=== PATIENT | female | born 1955 | race Caucasian/White ===

== ENCOUNTER 2023-07-12 10:06 | Emergency (ER) | payer BC, SELFPAY ==
[2023-07-12 10:10] VITALS: BP 133/60
[2023-07-12 11:09] VITALS: BMI 34.7
--- NOTE | 2023-07-12 11:12 | ED.GENMED ---
History of Present Illness
General
Chief Complaint: Cold/Flu/URI Symptoms
Source: patient
Exam Limitations: none
Time Seen by Provider: 07/12/23 11:11
Nursing documentation reviewed up to this point in time: agreed with
Travel History
Have you had any contact with someone who has COVID-19?: No
Do you have any symptoms of coronavirus? Fever > 100 degrees, chills, cough, shortness of breath, sore throat, loss of taste or smell, muscle aches, or headache?: Yes
Symptoms:: cough
History of Present Illness
History of Present Illness:
68-year-old female with history of HTN, HLD, hypothyroid presents stating 2 days ago she got overall chills, fatigue, sinus stuffiness, yesterday had a runny nose all day but felt a little better generally, last night she developed a horrible cough,
body aches and had trouble sleeping this morning she is 'sick and overall I feel bad.' Mild burning in throat.
Past History
Past History
ED Past Medical History: HTN, Hypercholesterolemia, Renal failure, Hypothyroidism and Other
ED Past Surgical History: Appendectomy and Gynecological
Social History
Tobacco: Non-smoker
Alcohol: Occasional
Personal:
Living: with family
Employment: Employed
Review of Systems
Review of Systems
Allergies reviewed?: Yes
All Other Systems: ROS reviewed and negative except as documented in HPI and ROS
Constitutional: Reports fatigue and chills; Denies fever
EENT: Reports sore throat
Respiratory: Reports cough; Denies trouble breathing
Cardiac: Denies chest pain
ABD/GI: Denies abdominal pain, nausea, vomiting or diarrhea
: Denies dysuria or difficulty voiding
Musculoskeletal: Reports other (general body aches); Denies edema
Skin: Reports no symptoms
Neurological: Denies dizzy, headache, weakness or numbness
Phy Exam
Physical Exam
Physical Exam:
GENERAL: No acute distress. A&Ox3.
CONSTITUTIONAL: Afebrile.
EYES: Clear, conjunctivae normal
Neck: Supple
ENMT: moist mucus membranes, Pharynx nl
RESPIRATORY: Regular respirations, nonlabored, lungs clear. Frequent coarse cough.
CARDIOVASCULAR: Regular rate and rhythm, no murmurs, no rubs.
GI: Soft, nontender
MUSCULOSKELETAL: Moves with ease. Well perfused.
SKIN: Warm, dry, pink
PSYCH: Normal mood and affect. Well kept, interactive and appropriate
NEUROLOGIC: Awake, alert and oriented. No focal neurological deficits
Course
Orders/Labs/Results
Orders:
Orders
07/12/23 10:57
Chest [CR Chest - 2 Views ] Urgent
Comment:
Reason For Exam: cough/uri
07/12/23 11:06
COVID-19 Antigen Urgent
Source: Nasal Swab
INF RAPID [Influenza A+B Rapid Molecular] Urgent
FRIDA Source: Nasal Swab
Specimen Description:
Abnormal Lab Results
07/12/23
11:06
SARS-CoV-2 Antigen Positive A
(Negative)
Vital Signs
Initial and Last Documented VS:
Initial Vital Signs
Temp Pulse Resp BP Pulse Ox
98.3 F 82 18 133/60 96
07/12/23 10:10 07/12/23 10:10 07/12/23 10:10 07/12/23 10:10 07/12/23 10:10
Last Documented Vital Signs
Temp Pulse Resp BP Pulse Ox
98.3 F 82 18 133/60 96
07/12/23 10:10 07/12/23 10:10 07/12/23 10:10 07/12/23 10:10 07/12/23 10:10
MDM/Problems Addressed
Differential Diagnosis Includes:
COVID, influenza, pneumonia
MDM/Problems Addressed:
68-year-old female with history of HTN, HLD, hypothyroid presents stating 2 days ago she got overall chills, fatigue, sinus stuffiness, yesterday had a runny nose all day but felt a little better generally, last night she developed a horrible cough,
body aches and had trouble sleeping this morning she is 'sick and overall I feel bad.' Mild burning in throat.
Afebrile, NAD
No hypoxemia
07/12/2023 1133 AM
COVID test is positive
Influenza test is negative
Chest x-ray NAD
*Critical Care Note
Total Time (30-74mins, 75-104mins- exclusive of procedures): Not Applicable
ED Attending Note
-
Portions of this chart may have been created with voice recognition software.� Occasional wrong word or��sound alike� substitutions may have occurred due to the inherent limitations of voice recognition software.
Discharge Plan
Departure
Patient Disposition: Home (Routine Discharge)
Date of Disposition: 07/12/23
Time of Disposition: 12:03
Patient with high blood pressure during this ER visit?: No
Condition: Good
Covid-19: Confirmed COVID-19
Discharge Problem:
COVID-19
Instructions: Coronavirus Home Quarantine
Prescriptions:
No Action
amlodipine 5 MG tablet
5 mg PO DAILY
levothyroxine 150 MCG tablet
150 mcg PO DAILY
rosuvastatin 10 MG tablet
10 mg PO DAILY
naproxen sodium [Aleve] 220 MG tablet
440 mg PO DAILY
Referrals:
Ana Luisa Greene MD [Family Provider] - As needed
Activity Restrictions/Additional Instructions:
As we discussed, your COVID test is positive.
You may try [id number] cough medications, mentholated cough drops may help
Interventions
Interventions:
*Risk Screen - Suicide Last Done: 07/12/23 11:09
*General Assessment Last Done: 07/12/23 11:09
*Neglect/Abuse Screening Last Done: 07/12/23 11:09
ED- Fall Risk Assessment Last Done: 07/12/23 11:09
*ED COVID-19 Vaccine History Last Done: 07/12/23 10:13
*Nursing Disposition Last Done: 07/12/23 12:13
ED- Pulmonary Assessment Last Done: 07/12/23 11:09
Discharge Date and Time
Discharge Date/Time: 07/12/23 12:18
[2023-07-12 11:19] LABS: COVID-19 Antigen Positive (Negative)
== END 2023-07-12 12:18 | disposition home or self-care (01) ==
LOC: EMR 10:06
PROVIDERS: EMERGENCY PHYSICIAN Emergency Medicine; FAMILY PHYSICIAN Family Medicine
DX: U07.1 COVID-19 (principal); I10 Essential (primary) hypertension; E78.5 Hyperlipidemia, unspecified; E03.9 Hypothyroidism, unspecified
CPT/HCPCS: 99283; 71046; 87502; 87811

== ENCOUNTER → 2023-07-17 06:46 | Outpatient (REF) | payer BC, SELFPAY ==
[2023-07-17 07:26] LABS: % Basophils 0.3 % (0-2); % Eosinophils 2.5 % (0-6); % Immature Granulocytes 0.5 % (0-0.5); % Lymphocytes 31.3 % (20.5-51.1); % Monocytes 5.1 % (1.7-9.3); % Neutrophils 60.3 % (42.2-75.2); Absolute Eosinophils 0.2 10^3/uL (0-0.7); Absolute Lymphocytes 2.8 10^3/uL (1.2-3.4); Absolute Monocytes 0.5 10^3/uL (0.1-0.6); Absolute Neutrophils 5.4 10^3/uL (1.4-6.5); Hematocrit 41.4 % (37.0-47.0); Mean Corp Hgb Conc. 33.8 g/dL (33.0-37.0); Mean Corpuscular Hgb 29.7 pg (27.0-31.0); Mean Corpuscular Volume 87.9 fL (81.0-99.0); Mean Platelet Volume 9.1 fL (7.4-10.4); Nucleated Red Blood Cells % 0 %; Platelet Count 306 10^3/uL (130-400); Red Blood Cell Count 4.71 10^6/uL (4.20-5.40); Red Cell Dist. Width 12.4 % (11.5-14.5); White Blood Cell Count 8.9 10^3/uL (4.8-10.8)
[2023-07-17 07:51] LABS: ALT (SGPT) 29 U/L (0-35); AST (SGOT) 28 U/L (14-36); Albumin 4.2 g/dl (3.5-5.0); Alkaline Phosphatase 97 U/L (38-126); Blood Urea Nitrogen 12 mg/dl (7-17); Calcium 9.1 mg/dl (8.4-10.2); Carbon Dioxide 30 mmol/L (22-30); Chloride 107 mmol/L (98-107); Glucose 116 mg/dl (70-99); HDL Cholesterol 40 mg/dl; LDL Cholesterol, Calculated 65 mg/dl; Potassium 3.8 mmol/L (3.5-5.1); Sodium 141 mmol/L (135-145); Total Bilirubin 0.6 mg/dl (0.2-1.3); Total Cholesterol 159 mg/dl (50-199); Total Protein 6.8 g/dl (6.3-8.2); Triglyceride 274 mg/dl (10-149); Very Low Density Lipoprotein 54 mg/dl (0-30); eGFR > 60.00
[2023-07-17 08:26] LABS: TSH Reflex To Free T4 6.57 uIU/ml (0.47-4.68)
[2023-07-17 08:55] LABS: Free T4 1.25 ng/dl (0.78-2.19)
[2023-07-17 11:15] LABS: Glycohemoglobin (HgbA1c) 6.2 % (4.0-5.6)
== END ==
LOC: REG 06:46
PROVIDERS: ATTENDING PHYSICIAN Family Medicine
DX: E03.8 Other specified hypothyroidism (principal); R73.01 Impaired fasting glucose; I10 Essential (primary) hypertension; E78.2 Mixed hyperlipidemia
CPT/HCPCS: 36415; 80053; 80061; 83036; 84439; 84443; 85025

== ENCOUNTER → 2023-09-04 15:37 | Outpatient (REF) | payer BC, SELFPAY ==
[2023-09-04 17:08] LABS: HDL Cholesterol 47 mg/dl; LDL Cholesterol, Calculated 71 mg/dl; Total Cholesterol 153 mg/dl (50-199); Triglyceride 179 mg/dl (10-149); Very Low Density Lipoprotein 35 mg/dl (0-30)
[2023-09-04 17:26] LABS: Free T4 2.06 ng/dl (0.78-2.19)
[2023-09-04 17:40] LABS: TSH 0.06 uIU/ml (0.47-4.68)
== END ==
LOC: REG 15:37
PROVIDERS: ATTENDING PHYSICIAN Family Medicine
DX: E78.2 Mixed hyperlipidemia (principal); E03.8 Other specified hypothyroidism
CPT/HCPCS: 36415; 80061; 84439; 84443

== ENCOUNTER → 2023-09-19 13:58 | Outpatient (REF) | payer BC, SELFPAY | LOC: WDC 13:58 | PROVIDERS: ATTENDING PHYSICIAN Family Medicine | DX: Z12.31 Encounter for screening mammogram for malignant neoplasm of breast (principal) | CPT/HCPCS: 77063; 77067 ==

== ENCOUNTER → 2024-09-23 15:05 | Outpatient (REF) | payer BC, SELFPAY | LOC: WDC 15:05 | PROVIDERS: ATTENDING PHYSICIAN Obstetrics & Gynecology Gynecology; FAMILY PHYSICIAN Family Medicine | DX: Z12.31 Encounter for screening mammogram for malignant neoplasm of breast (principal) | CPT/HCPCS: 77063; 77067 ==

== ENCOUNTER → 2024-12-11 11:54 | Outpatient (REF) | payer BC, SELFPAY | LOC: PAVMRI 11:54 | PROVIDERS: ATTENDING PHYSICIAN Student in an Organized Health Care Education/Training Program; FAMILY PHYSICIAN Family Medicine | DX: M76.821 Posterior tibial tendinitis, right leg (principal); M25.571 Pain in right ankle and joints of right foot | CPT/HCPCS: 73721 ==

== ENCOUNTER → 2025-02-22 06:21 | Outpatient (REF) | payer BC, SELFPAY ==
[2025-02-22 07:37] LABS: Hematocrit 46.5 % (37.0-47.0); Hemoglobin 15.0 g/dL (12.0-16.0); Mean Corp Hgb Conc. 32.3 g/dL (33.0-37.0); Mean Corpuscular Volume 88.9 fL (81.0-99.0); Nucleated Red Blood Cells % 0 %; Platelet Count 295 10^3/uL (130-400); Red Cell Dist. Width 12.7 % (11.5-14.5)
[2025-02-22 08:00] LABS: ALT (SGPT) 27 U/L (0-35); AST (SGOT) 23 U/L (14-36); Albumin 4.3 g/dl (3.5-5.0); Alkaline Phosphatase 104 U/L (38-126); Blood Urea Nitrogen 9 mg/dl (7-17); Calcium 9.4 mg/dl (8.4-10.2); Carbon Dioxide 30 mmol/L (22-30); Chloride 106 mmol/L (98-107); Glucose 130 mg/dl (70-99); HDL Cholesterol 43 mg/dl; LDL Cholesterol, Calculated 83 mg/dl; Potassium 4.5 mmol/L (3.5-5.1); Sodium 141 mmol/L (135-145); Total Protein 6.9 g/dl (6.3-8.2); Very Low Density Lipoprotein 35 mg/dl (0-30); eGFR > 60.00
[2025-02-22 08:52] LABS: Glycohemoglobin (HgbA1c) 6.0 % (4.0-5.6)
== END ==
LOC: REG 06:21
PROVIDERS: ATTENDING PHYSICIAN Family Medicine
DX: I10 Essential (primary) hypertension (principal); E78.2 Mixed hyperlipidemia; E03.8 Other specified hypothyroidism; R73.03 Prediabetes
CPT/HCPCS: 36415; 80053; 80061; 83036; 84439; 84443; 85025

== ENCOUNTER 2025-03-13 06:10 | Day surgery (SDC) | payer BC, SELFPAY ==
[2025-03-06 11:14] VITALS: BMI 38.6
[2025-03-13] VITALS (18 sets, daily range): BP systolic 102–152; BP diastolic 53–85; BMI 38.6
[2025-03-13] MEDS: TYLENOL 1000 MG PO (11:48)
[2025-03-13] MEDS: CELEBREX 200 MG PO (11:48)
[2025-03-13] MEDS: NORMOSOL-R/PLASMALYTE-A 1000 IV (11:55)
[2025-03-13] MEDS: ZOFRAN 4 MG IV (16:55)
--- NOTE | 2025-03-13 18:22 | CM ---
Received a phone call from Marta in [facility], PT was not able to see pt after surgery and DR Reza is requesting VN referral. I met with pt and her sister Rachel in PACU. Pt agreeable to referral to [facility]. Referral placed in [facility]. Rachel lives close
by and will provide support. Her number is [phone].
No other CM needs at this time.
--- NOTE | 2025-03-13 20:00 | W.PN.UPDATE ---
Update Note
Progress Note Update
70F s/p R medial double arthrodesis, gastroc recession, PT tenotomy
- strict NWB RLE
- continue surgical ppx abx 24hrs, not a barrier to discharge
- dressings c/d/i
- elevate RLE 2-3 pillows
- will reassess on am rounds
--- NOTE | 2025-03-13 20:03 | HPS.HSE ---
Family Physician
-
Family Physician: Ana Luisa Greeen MD
Chief Complaint
-
Postop
History of Present Illness
This is a 70-year-old female with past medical history significant for hypertension, hypothyroid, hyperlipidemia will presents in PACU following surgery.
She is postop day #0 status post double arthrodesis with posterior tibial tendon augmentation and gastroc lengthening in the R lower extremity. She had a delayed procedure. Plan was for discharge to home after procedure presents to the procedure
mostly patient is still recovering from anesthesia she was to be observed in the hospital overnight.
She is currently afebrile, hemodynamically stable with a blood pressure of 100/55 and a pulse of 66 and satting 98% on 2 L.
Medical History
Past Medical History
Past Medical History: Reports Other (hypertension, hypothyroid, hyperlipidemia, nephrolithiasis)
Past Surgical History: Reports Other (Hysterectomy with bilateral salpingo-oophorectomy, appendectomy, tonsillectomy, ureteroscopy and Right TKA)
Social History
Tobacco: Non-smoker
Alcohol: None
Drug: None
Personal:
Living: With Family
Family History
Family History: Not pertinent
Allergies / Home Medications
Allergies reflects when Allergies were last updated in [facility].
Home Medications with original date entered in [facility]
Allergy/Medication List:
Allergies
Allergy/AdvReac Type Severity Reaction Status Date / Time
No Known Allergies Allergy Verified 03/13/25 11:34
Home Medications
amlodipine 5 mg tablet 5 mg PO DAILY 11/05/19
levothyroxine 150 mcg tablet 150 mcg PO DAILY 11/05/19
rosuvastatin 10 mg tablet 10 mg PO DAILY 11/05/19
Review of Systems
-
Constitutional: Reports No Symptoms
EENT: Reports No Symptoms
Respiratory: Reports No Symptoms
Cardiac: Reports No Symptoms
Abdomen/GI: Reports No Symptoms
: Reports No Symptoms
Musculoskeletal: Reports No Symptoms
Skin: Reports No Symptoms
Neurological: Reports No Symptoms
Endocrine: Reports No Symptoms
Hematologic/Lymphatic: Reports No Symptoms
Psych: Reports No Symptoms
Physical Exam
Vital Signs
Vital Signs
Temp Pulse Resp BP Pulse Ox
97.9 F 66 16 104/55 94
03/13/25 18:00 03/13/25 19:30 03/13/25 19:30 03/13/25 19:00 03/13/25 19:30
Physical Exam
General: Well Developed, Well Nourished and No Apparent Distress
HEENT: NormoCephalic, Moist mucous membranes and Atraumatic
Respiratory: Clear
Cardiac: S1/S2 and Regular Rhythm; No Murmur or Rub
GI: Soft, Non Tender, Non Distended and Normal Bowel Sounds; No Organomegaly
Rectal: Deferred by Provider
Musculoskeletal: No Clubbing, No Cyanosis and Other (R lower extremity in cast)
Skin: No Rash
Neuro: Nonfocal/grossly intact
Psych: Calm
Data Reviewed
-
Diagnostic Radiology: Report Reviewed by me
Old Records: Reviewed
Impression/Plan
-
IMPRESSION:
70-year-old with past medical history of hypothyroid, hypertension hyperlipidemia who is postop day #0 status post double arthrodesis with posterior tibial tendon augmentation. Delayed procedure. Still recovering from anesthesia but currently
alert and oriented and easily arousable. Hemodynamically stable
PLAN:
Status post total double arthrodesis with tibial tendon augmentation
-Admit to MedSurg observation overnight
-Regular diet as tolerated
-Wean oxygen
-Pain control with as needed Tylenol, Celebrex and 5 mg of oxycodone
-Antiemetics as needed
-No indication for additional IV fluids at this time
-Continue Ancef while hospitalized.
-DVT prophylaxis with SCDs for now
-PT consulted, plan is for outpatient PT
CODE STATUS�full code
--- NOTE | 2025-03-13 21:00 | PTCARENOTE ---
PT 70-year-old female post R Foot Recon/Athro Posterior Tendon Repair, arrived from PACU to at 20:40. PMH HTN, hypothyroid, HLD status post double arthrodesis with posterior tibial tendon augmentation and gastroc lengthening in the R lower
extremity. Pt AOx3, non-weight bearing to RLE, RLE elevated on 3 pillows, pt denies pain at this time, bed in low position, call light in reach.
[ End ]
[2025-03-13] MEDS: NEURONTIN 300 MG PO (22:35)
[2025-03-13] MEDS: ANCEF 10 IV (22:35)
[2025-03-14 04:10] VITALS: BP 127/69
[2025-03-14] MEDS: ANCEF 10 IV (05:35)
[2025-03-14] MEDS: SYNTHROID 150 MCG PO (05:35)
[2025-03-14 07:35] VITALS: BP 128/68
[2025-03-14] MEDS: CRESTOR 10 MG PO (08:02)
[2025-03-14] MEDS: NEURONTIN 300 MG PO (08:02)
[2025-03-14] MEDS: NORVASC 5 MG PO (08:02)
--- NOTE | 2025-03-14 08:54 | CM ---
Cm reviewed medical records. Patient had been referred to [facility]. CM updated [facility] Admission RN.
PLAN: home with VN.
[2025-03-14 09:40] VITALS: BP 126/58; PULSE 76; O2SAT 98
--- NOTE | 2025-03-14 09:40 | W.PN.HOSP.TC ---
Today's Communication/Plan
-
Discharge
Assessment / Plan
Assessment / Plan
Gen-AAOx3, NAD
HEENT-NC, AT, anicteric, clear oral mm
Neck-supple
CV-reg, no M, +S1/S2
Lungs-clear B/L
Abd-soft, NT, ND
Ext-no edema
Musculoskeletal-no cyanosis, clubbing, right ankle Arnaud dressing intact
Skin-warm and dry
Neuro-grossly non-focal
Psych-calm, cooperative
Right foot pes valgus, posterior tibial tendon dysfunction, gastrocnemius equinus -underwent right foot medial double arthrodesis with posterior tibial tendon augmentation, tenolysis and gastroc recession, 03/13.
Stable postoperatively.
Brief postoperative hypoxia requiring observation overnight. Resolved.
Continue analgesics. Nonweightbearing right lower extremity per podiatry.
Outpatient podiatry follow-up.
Essential hypertension -continue amlodipine.
Impaired fasting glucose -recent hemoglobin A1c 6%, 02/22. Recommend weight loss. Outpatient follow-up with PCP.
Hyperlipidemia -rosuvastatin.
Hypothyroidism -continue levothyroxine. Recent TSH 0.02, free T4 1.7. Recommend follow-up with PCP.
Obesity due to excess calories
Full code
Dispo -stable for discharge today with outpatient follow-up.
32 minutes spent in discharge process.
Anticipated Discharge: Today
Subjective/Interval History
-
Date of Service: March 14, 2025
Patient seen and examined. Complaining of pressure around the ankle.
Objective Data
-
Vital Signs:
Vital Signs
Temp Pulse Resp BP Pulse Ox
98.1 F 68 16 138/61 93
03/14/25 07:35 03/14/25 07:35 03/14/25 07:35 03/14/25 08:02 03/14/25 07:35
I&O
03/13/25 03/14/25 03/15/25
06:59 06:59 06:59
Intake Total 400 / 400
Output Total 500 / 500
Balance -100 / -100
Review of Systems
-
History Source: Patient
All other systems: Reviewed and negative
--- NOTE | 2025-03-14 09:49 | VNURNOTE ---
Addendum entered by Ana Luisa Cleveland RN 03/14/25 10:09:
Correction:
start of care will be within a few days after discharge from . Sister was contacted and is aware.
Original Note:
Home Health Liaison met with patient at bedside to discuss [facility] nurse/therapy, visits, schedule and homebound status. Patient is agreeable and understands that visits at home will be 2-3 x per week to assess and teach medical management. Patient
requested rolling walker. PT aware. She confirms that she has a knee scooter at home. She denies need for commode or wc. She verbalizes understanding of strict NWB RLE. Patient is aware that [facility] will contact them for start of care in 1-2
days after discharge from . Provided contact number for [facility].
PM [facility] referral accepted in [facility].
--- NOTE | 2025-03-14 09:54 | W.DS.TRANS ---
DC Summary - Industrial Electrical Engineer
-
Discharge Instructions:
Sleep Apnea Risk Intermediate
Discharge Diagnosis/Procedures Right foot medial double arthrodesis
Diet Regular
Activity With assistance
Additional Activity Nonweightbearing right lower extremity
Driving Restrictions No driving
Bathing Restrictions None
Instructions:
Stand-Alone Forms:
Changes to Home Medications: No
Discharge Medications:
DC Medications w/original date entered in [facility]
amlodipine 5 mg tablet 5 mg PO DAILY 11/05/19
levothyroxine 150 mcg tablet 150 mcg PO DAILY 11/05/19
rosuvastatin 10 mg tablet 10 mg PO DAILY 11/05/19
ibuprofen 800 mg tablet 800 mg PO TID PRN Pain #20 tabs 03/14/25
oxycodone 5 mg tablet 5 mg PO Q4HPRN PRN severe pain #15 tabs 03/14/25
Home Medication Changes
Pending Results: No
--- NOTE | 2025-03-14 10:05 | W.PN.UPDATE ---
Update Note
Progress Note Update
70F s/p R medial double arthrodesis, gastroc recession, PT tenotomy. doing well this AM, mild pain at gastroc surgical site. calves sofut supple nontender to touch, dressings c/d/i, motor funciton intact, sensation intact to pedal distributions
- strict NWB RLE
- continue surgical ppx abx 24hrs, not a barrier to discharge
- dressings c/d/i
- elevate RLE 2-3 pillows
- may follow up in office with myself or [place]
[2025-03-14] MEDS: TYLENOL 650 MG PO (10:54)
[2025-03-14] MEDS: ROXICODONE 5 MG PO (10:55)
[2025-03-14 12:29] VITALS: BP 106/59
== END 2025-03-14 12:31 | disposition home or self-care (01) ==
LOC: SDS 06:10
PROVIDERS: ATTENDING PHYSICIAN Hospitalist; CONSULT PHYSICIAN Student in an Organized Health Care Education/Training Program; FAMILY PHYSICIAN Family Medicine
DX: M21.071 Valgus deformity, not elsewhere classified, right ankle (principal); M62.461 Contracture of muscle, right lower leg; M76.821 Posterior tibial tendinitis, right leg
CPT/HCPCS: 28725; 27687; 27680; 28740; 73630; 76000; 93005; 97163; 97167; C1713